=== PATIENT | female | born 1945 | race Caucasian/White ===

== ENCOUNTER 2022-01-31 09:48 | Day surgery (SDC) | payer OTHER, MEDICARE ==
[2022-01-31] MEDS ORDERED: Zoledronic Acid/Mannitol/Water 5 MG/100 ML INFUS.BOT IV ONE (10:00)
[2022-01-31 10:17] VITALS: BP 129/52; TEMP 98.1; O2SAT 98; BMI 24.1
== END 2022-01-31 10:28 | disposition home or self-care (01) ==
LOC: DS 09:48
PROVIDERS: ATTEND Internal Medicine
DX: M81.0 Age-related osteoporosis without current pathological fracture (principal); R13.10 Dysphagia, unspecified
CPT/HCPCS: 96365; J3489

== ENCOUNTER 2024-02-19 07:25 | Day surgery (SDC) | payer OTHER, MEDICARE ==
[2024-02-19] MEDS ORDERED: Zoledronic Acid/Mannitol/Water 5 MG/100 ML INFUS.BOT IV SCH (08:00)
[2024-02-19 08:22] VITALS: BP 124/63; TEMP 97; O2SAT 98; BMI 24.5
== END 2024-02-19 08:35 | disposition home or self-care (01) ==
LOC: DS 07:25
PROVIDERS: ATTEND Family Medicine
DX: M81.0 Age-related osteoporosis without current pathological fracture (principal); R13.10 Dysphagia, unspecified
CPT/HCPCS: 96365; J3489

== ENCOUNTER 2024-03-24 10:21 | Day surgery (SDC) | payer OTHER, MEDICARE ==
[2024-03-23 11:33] LABS: Absolute Eosinophils 0.1 K/uL (0-0.5); Absolute Lymphocytes (CBC) 2.7 K/uL (0.7-4.9); Absolute Neutrophil 4.8 K/uL (1.8-8.0); Basophils % 0.4 % (0-1.3); Eosinophils % 1.2 % (0-4.4); Hematocrit 36.1 % (36.0-45.0); Hemoglobin 12.1 g/dL (12.0-15.0); Lymphocytes % 30.9 % (15.3-44.8); MCH 30.1 pg (27.0-35.0); MCHC 33.5 g/dL (32.0-36.0); MCV 89.7 fL (80-100); MPV 9.3 fL (7.6-11.3); Monocytes % 11.8 % (3.3-12.3); Neutrophils % 55.7 % (41.7-73.7); Platelets 286 thou/uL (152-406); RBC Red Blood Cell Count 4.03 M/uL (3.86-4.86); Red Cell Distribution Width 13.6 % (12.1-15.2)
[2024-03-23 11:56] LABS: Anion Gap 8.1 mEq/L (5.0-15.0); Potassium 4.1 mEq/L (3.5-5.1)
[2024-03-24] MEDS: Ringers Lactate 1,000 ML IV ONE (11:10)
[2024-03-24] MEDS ORDERED: LIDOCAINE 1% MPF 30 ML VIAL ONE (11:55)
[2024-03-24] MEDS ORDERED: GLYCOPYRROLATE 0.2 MG/ML SYR ONE (11:55)
[2024-03-24] MEDS ORDERED: propofoL 200 MG/20 ML VIAL IV ONE (11:55)
[2024-03-24 14:02] VITALS: BP 135/77; TEMP 97.8
--- NOTE | 2024-03-24 14:51 | EKG ---
Test Date: 2024-03-23 Test Time: 10:56:25 Office Engineer: ANNAMARIA MEASUREMENT RESULTS: Intervals: Rate: 61 NJ: 152 QRSD: 78 QT: 410 QTc: 412 [place]: P: 56 NJ: 152 QRS: -15 T: 24 INTERPRETIVE STATEMENTS: Normal sinus rhythm Possible Left atrial enlargement Low voltage QRS Cannot rule out Anterior infarct, age undetermined Abnormal ECG Compared to ECG 03/22/2016 03:18:18 Low QRS voltage now present Myocardial infarct finding now present Electronically Signed On 03-24-24 14:46:44 CDT by Zuhair Layne
[2024-03-24 14:54] VITALS: O2SAT 96
== END 2024-03-24 13:43 | disposition home or self-care (01) ==
LOC: OR 10:21
PROVIDERS: ATTEND Surgery
PROC: 0DBM8ZX Excision of Descending Colon, Via Natural or Artificial Opening Endoscopic, Diagnostic (ICD-10-PCS; 2024-03-24)
PROC: 0DBP8ZX Excision of Rectum, Via Natural or Artificial Opening Endoscopic, Diagnostic (ICD-10-PCS; 2024-03-24)
PROC: 0DBK8ZX Excision of Ascending Colon, Via Natural or Artificial Opening Endoscopic, Diagnostic (ICD-10-PCS; principal; 2024-03-24 11:58)
DX: Z12.11 Encounter for screening for malignant neoplasm of colon (principal); K57.30 Diverticulosis of large intestine without perforation or abscess without bleeding; K64.8 Other hemorrhoids; K63.89 Other specified diseases of intestine; K63.5 Polyp of colon; D12.4 Benign neoplasm of descending colon
CPT/HCPCS: 45385; 45380; 93005; 85025; 80048; 36415; J2704; J2001; J7120; 88305; J2003

== ENCOUNTER 2024-09-12 15:22 | Inpatient (IN) | payer OTHER, MEDICARE ==
[2024-09-12 16:48] LABS: Absolute Eosinophils 0.1 K/uL (0-0.5); Absolute Lymphocytes (CBC) 2.3 K/uL (0.7-4.9); Absolute Monocytes 1.1 K/uL (0.1-1.3); Absolute Neutrophil 5.2 K/uL (1.8-8.0); Basophils % 0.4 % (0-1.3); Eosinophils % 1.6 % (0-4.4); Hematocrit 34.1 % (36.0-45.0); Hemoglobin 11.5 g/dL (12.0-15.0); Lymphocytes % 26.7 % (15.3-44.8); MCH 29.9 pg (27.0-35.0); MCHC 33.6 g/dL (32.0-36.0); MCV 89.2 fL (80-100); MPV 7.7 fL (7.6-11.3); Monocytes % 12.3 % (3.3-12.3); Nucleated Red Blood Cells % 0.1 % (0-0); Platelets 503 thou/uL (152-406); RBC Red Blood Cell Count 3.83 M/uL (3.86-4.86); Red Cell Distribution Width 13.5 % (12.1-15.2)
[2024-09-12 16:55] LABS: PT Prothrombin Time 13.3 SECONDS (10-13.0); Protime INR 1.18
[2024-09-12 17:05] LABS: Influenza A Ag Negative; Influenza B Ag Negative; SARS-CoV-2 Antigen Rapid Res Negative (Negative)
[2024-09-12 17:07] LABS: ALT/SGPT 18 U/L (13-56); AST/SGOT 11 U/L (15-37); Albumin 2.9 g/dL (3.4-5.0); Albumin/Globulin Ratio 0.7 (1.1-1.8); Alkaline Phosphatase 105 U/L (45-117); Anion Gap 9.2 mEq/L (5.0-15.0); BUN Blood Urea Nitrogen 8 mg/dL (7-18); Bicarbonate 26 mEq/L (21-32); Bilirubin Direct < 0.2 mg/dL (0-0.2); Bilirubin Indirect, Calculated 0.1 mg/dL (0.2-0.8); Bilirubin Total 0.3 mg/dL (0.2-1.0); Globulin 4.1 g/dL (2.3-3.5); Glomerular Filtration Rate 88 ml/min (=/>90); Glucose Level 92 mg/dL (74-106); Lipase 35 U/L (13-75); Magnesium 2.2 mg/dL (1.6-2.4); NT PRO-BNP 112 pg/mL (<450); Potassium 4.2 mEq/L (3.5-5.1); Sodium Level 134 mEq/L (136-145)
[2024-09-12] MEDS ORDERED: CEFTRIAXONE 1000 MG/VIAL ONE (17:30)
--- NOTE | 2024-09-12 17:48 | RAD REPORT ---
EXAMINATION: CT HEAD WITHOUT CONTRAST CT CERVICAL SPINE WITHOUT CONTRAST CLINICAL INDICATION: Head and neck pain. Cervical spine stenosis. Cervical spine surgery. TECHNIQUE: Axial CT images from the skull base to the vertex without intravenous contrast. Axial CT images through the cervical spine were obtained without intravenous contrast. Sagittal and coronal reformatt ed images were created from the data set. Coronal and sagittal reformatted images were created from the data set. One or more of the following dose reduction techniques were used: Automated exposure co ntrol, adjustment of the mA and/or kV according to patient size, and/or iterative reconstruction. Unless otherwise specified, incidental findings do not require dedicated imaging follow-up. [id number]. Comparison: none FINDINGS: An intracranial bleed is not seen. Ventricles are normal in caliber. No significant hypodensity within the brain No extra-axial fluid collection. No fluid within the sinuses/mastoids Mildly displaced fractures involve the posterior right and left lamina of C7. Laminectomies involve C4-C6 with placement of screws. No obvious is significant acute spinal canal abnormality visualized. Mild posterior subluxation C3 on C4. Spondylosis C3-4 results in marked right foraminal stenosis. IMPRESSION: No acute intracranial abnormality noted Mildly displaced fractures posterior right and left lamina of C7 Post surgical changes C4-C6. If clinically indicated further evaluation with MRI may be helpful to assess the spinal canal.
--- NOTE | 2024-09-12 17:56 | RAD REPORT ---
EXAM: CT CHEST, ABDOMEN AND PELVIS WITHOUT CONTRAST CLINICAL INDICATION: Chest and abdominal pain TECHNIQUE: CT chest, abdomen and pelvis was performed, without IV contrast, as per department protoco l. Axial, sagittal and coronal reconstructions were obtained. One or more of the following dose reduction techniques were used: Automated exposure control, adjustment of the mA and/or kV according to the patient size, and/or iterative reconstruction. Unless otherwise specified, incidental findings do not require dedicated imaging follow-up. The lack of IV and oral contrast limits evaluation of the mediastinum, hussain, vessels, organs and zachary l. COMPARISON: 2020 CT chest and 2023 CT abdomen FINDINGS: Moderate bilateral predominantly reticular nodular opacities within the lower lobes bilaterally. Mild groundglass opacities within the right lung. Calcified granulomas within the lungs. No mediastin al or hilar lymphadenopathy seen. No pleural effusion. No pericardial effusion. Cirrhotic liver. Tiny hepatic cyst. Spleen, pancreas, adrenals and kidneys grossly normal. Atherosclerosis. No adnexal mass. Wall of the proximal duodenum appears mildly thickened. No evidence of diverticulitis . IMPRESSION: Moderate reticular nodular opacities within the lower lobes bilaterally could represent atypical infe ction, aspiration or pneumonitis. Wall of the proximal duodenum appears mildly thickened which could indicate inflammation.
--- NOTE | 2024-09-12 18:14 | RAD REPORT ---
Procedure: Chest Single View HISTORY: Cough COMPARISON: 2019 FINDINGS: Moderate reticular nodular opacities within the lung bases. Calcified granuloma left lung. Upper lobe s appear clear. No significant pleural effusion noted. The heart is normal size. IMPRESSION: Moderate reticular nodular opacities within the lung bases may indicate atypical infection or pneumon itis
--- NOTE | 2024-09-12 19:03 | EDPHYS ---
Physician Documentation [facility] Name: Rimma Samson Age: 78 yrs Sex: Female : 1945 Arrival Date: 09/12/2024 Time: 15:22 Bed 14 Private MD: ED Physician Charles Coreas HPI: 09/12 18:56 This 78 yrs old Female presents to ER via EMS with complaints of General radha Weakness. 18:56 The patient presents with abdominal pain in the epigastric area. Onset: The radha symptoms/episode began/occurred 3 day(s) ago. The patient presents to the emergency department with nausea, vomiting, abdominal pain, of the epigastric area. Onset: The symptoms/episode began/occurred 3 day(s) ago. Possible causes: unknown. The symptoms are aggravated by food , The symptoms are alleviated by nothing. WEAK , NOT EATING OR DRINKING 2-3 DAYS. Associated signs and symptoms: Pertinent positives: nausea, vomiting. Associated signs and symptoms: Pertinent positives: nausea. Historical: - Allergies: 16:00 No Known Allergies; bp - PMHx: 16:00 COPD; Hypertension; bp - Immunization history:: Adult Immunizations unknown. - Infectious Disease History:: Denies. - Social history:: Smoking status: Patient denies any tobacco usage or history of. - Family history:: not pertinent. ROS: 18:56 Constitutional: Negative for fever, chills, and weight loss, Eyes: Negative for injury, radha pain, redness, and discharge, ENT: Negative for injury, pain, and discharge, Neck: Negative for injury, pain, and swelling, Cardiovascular: Negative for chest pain, palpitations, and edema, Respiratory: Negative for shortness of breath, cough, wheezing, and pleuritic chest pain, Back: Negative for injury and pain, : Negative for injury, bleeding, discharge, and swelling, MS/Extremity: Negative for injury and deformity, Skin: Negative for injury, rash, and discoloration, Psych: Negative for depression, anxiety, suicide ideation, homicidal ideation, and hallucinations, Allergy/Immunology: Negative for hives, rash, and allergies, Endocrine: Negative for neck swelling, polydipsia, polyuria, polyphagia, and marked weight changes, Hematologic/Lymphatic: Negative for swollen nodes, abnormal bleeding, and unusual bruising, 18:56 Abdomen/GI: Positive for abdominal pain, of the epigastric area, 18:56 Neuro: Positive for weakness, Exam: 18:56 Constitutional: This is a well developed, well nourished patient who is awake, alert, radha and in no acute distress. Head/Face: Normocephalic, atraumatic. Eyes: Pupils equal round and reactive to light, extra-ocular motions intact. Lids and lashes normal. Conjunctiva and sclera are non-icteric and not injected. Cornea within normal limits. Periorbital areas with no swelling, redness, or edema. ENT: Nares patent. No nasal discharge, no septal abnormalities noted. Tympanic membranes are normal and external auditory canals are clear. Oropharynx with no redness, swelling, or masses, exudates, or evidence of obstruction, uvula midline. Mucous membranes moist. Neck: Trachea midline, no thyromegaly or masses palpated, and no cervical lymphadenopathy. Supple, full range of motion without nuchal rigidity, or vertebral point tenderness. No Meningismus. Chest/axilla: Normal chest wall appearance and motion. Nontender with no deformity. No lesions are appreciated. Cardiovascular: Regular rate and rhythm with a normal S1 and S2. No gallops, murmurs, or rubs. Normal PMI, no JVD. No pulse deficits. Respiratory: Lungs have equal breath sounds bilaterally, clear to auscultation and percussion. No rales, rhonchi or wheezes noted. No increased work of breathing, no retractions or nasal flaring. Back: No spinal tenderness. No costovertebral tenderness. Full range of motion. Female : Normal external genitalia. Skin: Warm, dry with normal turgor. Normal color with no rashes, no lesions, and no evidence of cellulitis. MS/ Extremity: Pulses equal, no cyanosis. Neurovascular intact. Full, normal range of motion., bilateral aka Psych: Awake, alert, with orientation to person, place and time. Behavior, mood, and affect are within normal limits. 18:56 ECG was reviewed by the Attending Physician. 18:56 Abdomen/GI: Inspection: abdomen appears normal, Bowel sounds: active, Palpation: mild abdominal tenderness, in the epigastric area, Liver: no appreciated palpable abnormalities, Hernia: not appreciated, Vital Signs: 15:37 BP 118 / 60; Pulse 75; Resp 18; Pulse Ox 100% ; Weight 48.99 kg; Height 5 ft. 0 in. ; kj2 17:00 BP 110 / 57; Pulse 83; Resp 16; Pulse Ox 96% ; bp 19:00 BP 127 / 70; Pulse 85; Resp 18; Pulse Ox 98% ; cp4 20:00 BP 126 / 58; Pulse 88; Resp 18; Pulse Ox 99% ; cp4 15:37 Body Mass Index 21.09 (48.99 kg, 152.4 cm) kj2 MDM: 15:44 Medical Screening Exam initiated [facility] 09/12 15:46 Order name: Basic Metabolic Panel; Complete Time: 18:36 [facility] 09/12 15:46 Order name: CBC with Diff; Complete Time: 18:36 [facility] 09/12 15:46 Order name: LFT's; Complete Time: 18:36 [facility] 09/12 15:46 Order name: Magnesium; Complete Time: 18:36 [facility] 09/12 15:46 Order name: NT PRO-BNP; Complete Time: 18:36 [facility] 09/12 15:46 Order name: PT-INR; Complete Time: 18:36 [facility] 09/12 15:46 Order name: Troponin HS; Complete Time: 18:36 [facility] 09/12 15:46 Order name: Lipase; Complete Time: 18:36 [facility] 09/12 15:46 Order name: Urinalysis w/ reflexes [facility] 09/12 15:46 Order name: COVID-19 Ag + Flu A+B Ag; Complete Time: 18:36 [facility] 09/12 15:46 Order name: Blood Culture Adult (2) 09/12 15:46 Order name: Lactate w/ 2H reflex if indic.; Complete Time: 18:36 [facility] 09/12 19:14 Order name: Basic Metabolic Panel EDMS 09/12 19:14 Order name: Basic Metabolic Panel EDMS 09/12 19:14 Order name: CBC with Automated Diff EDMS 09/12 19:14 Order name: CBC with Automated Diff EDMS 09/12 19:14 Order name: Lipase EDMS 09/12 19:14 Order name: Lipase EDMS 09/12 19:14 Order name: Liver (Hepatic) Function EDMS 09/12 19:14 Order name: Liver (Hepatic) Function EDMS 09/12 15:46 Order name: XRAY Chest (1 view); Complete Time: 18:36 [facility] 09/12 15:59 Order name: Chest Abd Pelvis Wo Con; Complete Time: 18:36 EDMS 09/12 16:02 Order name: Head C Spine Mpr Wo Con; Complete Time: 18:36 EDMS 09/12 15:46 Order name: EKG; Complete Time: 15:47 [facility] 09/12 15:46 Order name: Cardiac monitoring; Complete Time: 16:12 [facility] 09/12 15:46 Order name: EKG - Nurse/Tech; Complete Time: 17:10 [facility] 09/12 15:46 Order name: IV Saline Lock; Complete Time: 17:10 [facility] 09/12 15:46 Order name: Labs collected and sent; Complete Time: 17:10 [facility] 09/12 15:46 Order name: O2 Per Protocol; Complete Time: 16:12 [facility] 09/12 15:46 Order name: O2 Sat Monitoring; Complete Time: 16:12 [facility] EC:56 Rate is 52 beats/min. Rhythm is regular. QRS Edgar is Normal. QRS interval is normal. QT radha interval is normal. No Q waves. T waves are Normal. No ST changes noted. Clinical impression: Normal ECG, NSR w/ Non-specific ST/T Changes, and No evidence of ischemia. Interpreted by me. Reviewed by me. Administered Medications: 17:47 Drug: NS 0.9% IV (30 ml/kg) 30 ml/kg IV at bolus once; Sepsis Protocol; to be given as bp a bolus over 90 minutes Route: IV; Rate: bolus; Site: left forearm; 19:53 Follow up: IV Status: Completed infusion cp4 17:47 Drug: Rocephin IV 1 grams IV at per protocol once; Given slow IV push per pharmacy bp instructions Route: IV; Rate: per protocol; Site: right forearm; 19:53 Follow up: IV Status: Completed infusion cp4 19:52 Drug: Pantoprazole IVP 40 mg IVP once Route: IVP; Site: right antecubital; cp4 20:13 Follow up: Response: No adverse reaction cp4 19:53 Drug: levofloxacin IVPB 500 mg 100 ml IVPB once over 60 mins Volume: 100 ml; Route: cp4 IVPB; Infused Over: 60 mins; Site: right antecubital; 21:04 Follow up: Response: No adverse reaction cp4 Disposition Summary: 09/12/24 19:03 Hospitalization Ordered Notes: Hospitalization Status: Inpatient Admission [facility] Provider: Joe Mckeon cha Location: Telemetry/MedSurg (Inpatient) radha Condition: Fair radha Problem: new radha Symptoms: have improved radha Bed/Room Type: Standard [facility] Room Assignment: 207(09/12/24 19:50) vk Diagnosis - Anorexia radha - Weakness radha - Pneumonia due to other specified bacteria - BILATERAL LOWER LOBE RETICULAR NODULAR radha PNA - Epigastric abdominal tenderness - MILD DUODENITIS radha Forms: - Medication Reconciliation Form radha - SBAR form radha - Leadership Thank You Letter radha Signatures: Dispatcher [employer] EDMS Charles Coreas MD MD cha Peltier, Brian, RN RN Vandana Barr cp4 Erica Yañez Krystal, SHADI RN kj2 Corrections: (The following items were deleted from the chart) 15:59 15:47 Head C Spine Cap Wo Con+CT.RAD.BRZ ordered. EDNY EDMS 19:50 19:03 radha vk
--- NOTE | 2024-09-12 19:03 | ER ---
Nurse's Notes [facility] Name: Rimma Samson Age: 78 yrs Sex: Female : 1945 Arrival Date: 09/12/2024 Time: 15:22 Bed 14 Private MD: Diagnosis: Anorexia;Weakness;Pneumonia due to other specified bacteria-BILATERAL LOWER LOBE RETICULAR NODULAR PNA;Epigastric abdominal tenderness-MILD DUODENITIS Presentation: 09/12 15:34 Chief complaint: EMS states: generalized weakness, malaise. Coronavirus screen: Client kj2 denies travel out of the [place] in the last 14 days. Ebola Screen: No symptoms or risks identified at this time. Risk Assessment: Do you want to hurt yourself or someone else? Patient reports no desire to harm self or others. Onset of symptoms was September 12, 2024. 15:34 Method Of Arrival: EMS: [email or web address] kj2 15:34 Acuity: EBONI 3 kj2 21:03 Initial Sepsis Screen: Does the patient meet any 2 criteria? No. Patient's initial cp4 sepsis screen is negative. Does the patient have a suspected source of infection? No. Patient's initial sepsis screen is negative. Triage Assessment: 15:35 General: Appears in no apparent distress. Behavior is calm, cooperative. Pain: Denies kj2 pain. Neuro: Level of Consciousness is awake, alert, obeys commands, Oriented to person, place, time, situation. Cardiovascular: Patient's skin is warm and dry. Respiratory: Airway is patent Respiratory effort is even, unlabored. GI: No signs and/or symptoms were reported involving the gastrointestinal system. : No signs and/or symptoms were reported regarding the genitourinary system. Historical: - Allergies: 16:00 No Known Allergies; bp - PMHx: 16:00 COPD; Hypertension; bp - Immunization history:: Adult Immunizations unknown. - Infectious Disease History:: Denies. - Social history:: Smoking status: Patient denies any tobacco usage or history of. - Family history:: not pertinent. Screenin:01 [facility] ED Fall Risk Assessment (Adult) History of falling in the last 3 months, cp4 including since admission No falls in past 3 months (0 pts) Confusion or Disorientation No (0 pts) Intoxicated or Sedated No (0 pts) Impaired Gait No (0 pts) Mobility Assist Device Used Yes (1 pt) Altered Elimination No (0 pt) Score/Fall Risk Level 0 - 2 = Low Risk Oriented to surroundings, Maintained a safe environment, Assessed \T\ reinforced patient's understanding of fall precautions, Hourly rounding (assess needs \T\ fall precautionary measures) done. Abuse screen: Denies threats or abuse. Denies injuries from another. Nutritional screening: No deficits noted. Tuberculosis screening: No symptoms or risk factors identified. Assessment: 15:36 General: see triage assessment. kj2 20:12 Reassessment: Patient appears in no apparent distress at this time. No changes from cp4 previously documented assessment. Patient and/or family updated on plan of care and expected duration. Pain level reassessed. Patient is alert, oriented x 3, equal unlabored respirations, skin warm/dry/pink. Vital Signs: 15:37 BP 118 / 60; Pulse 75; Resp 18; Pulse Ox 100% ; Weight 48.99 kg; Height 5 ft. 0 in. ; kj2 17:00 BP 110 / 57; Pulse 83; Resp 16; Pulse Ox 96% ; bp 19:00 BP 127 / 70; Pulse 85; Resp 18; Pulse Ox 98% ; cp4 20:00 BP 126 / 58; Pulse 88; Resp 18; Pulse Ox 99% ; cp4 15:37 Body Mass Index 21.09 (48.99 kg, 152.4 cm) kj2 ED Course: 15:33 Patient arrived in ED. kj2 15:35 Triage completed. kj2 15:43 Km Sanders, SHADI is Primary Nurse. bp 15:44 Charles Coreas MD is Attending Physician. radha 17:10 EKG done, by ED staff, reviewed by Charles Coreas MD. am7 17:25 Chest Abd Pelvis Wo Con In Process Unspecified. EDMS 17:25 Head C Spine Mpr Wo Con In Process Unspecified. EDMS 17:56 XRAY Chest (1 view) In Process Unspecified. EDMS 19:01 Joe Mckeon MD is Hospitalizing Provider. radha 21:01 No provider procedures requiring assistance completed. Patient admitted, IV remains in cp4 place. 21:01 Bed in low position. Call light in reach. Side rails up X 1. Provided Education on: cp4 admission. 21:03 Arm band placed on right wrist. Patient placed in waiting room. cp4 Administered Medications: 17:47 Drug: NS 0.9% IV (30 ml/kg) 30 ml/kg IV at bolus once; Sepsis Protocol; to be given as bp a bolus over 90 minutes Route: IV; Rate: bolus; Site: left forearm; 19:53 Follow up: IV Status: Completed infusion cp4 17:47 Drug: Rocephin IV 1 grams IV at per protocol once; Given slow IV push per pharmacy bp instructions Route: IV; Rate: per protocol; Site: right forearm; 19:53 Follow up: IV Status: Completed infusion cp4 19:52 Drug: Pantoprazole IVP 40 mg IVP once Route: IVP; Site: right antecubital; cp4 20:13 Follow up: Response: No adverse reaction cp4 19:53 Drug: levofloxacin IVPB 500 mg 100 ml IVPB once over 60 mins Volume: 100 ml; Route: cp4 IVPB; Infused Over: 60 mins; Site: right antecubital; 21:04 Follow up: Response: No adverse reaction cp4 Medication: 21:01 VIS not applicable for this client. cp4 Outcome: 19:03 Decision to Hospitalize by Provider. radha 21:01 Admitted to Med/surg accompanied by tech, via stretcher, with chart, cp4 21:01 Condition: stable 21:01 Instructed on the need for admit, 21:03 Patient left the ED. cp4 Signatures: Dispatcher [employer] EDMS Charles Coreas MD MD cha Peltier, Brian, RN RN Vandana Barr cp4 Bárbara Cuevas RN RN [facility]
[2024-09-12] MEDS ORDERED: ONDANSETRON 4 MG/2 ML VIAL IV PRN (19:09)
[2024-09-12] MEDS ORDERED: ACETAMINOPHEN 325 MG TABLET PO PRN (19:09)
[2024-09-12] MEDS ORDERED: SODIUM CHLORIDE 0.9% 10ML INJ IV PRN (19:10)
[2024-09-12] MEDS ORDERED: FENTANYL CITR 100 MCG/2 ML IV PRN (19:11)
[2024-09-12] MEDS ORDERED: THIAMINE 200 MG/2 ML INJ ONE (19:41)
[2024-09-12] MEDS ORDERED: PANTOPRAZOLE 40 MG INJ ONE (19:41)
[2024-09-12] MEDS ORDERED: FOLIC ACID 5 MG/ML VIAL ONE (19:41)
[2024-09-12] MEDS ORDERED: MULTIVITAMINS 10 ML VIAL (INJ) IV ONE (19:41)
[2024-09-12] MEDS ORDERED: NA CHLORIDE 0.9% 0 ML ONE (19:42)
[2024-09-12] MEDS ORDERED: Levofloxacin500mg IV 500 MG/100 ML BAG IV ONE (19:42)
[2024-09-12 21:12] VITALS: O2SAT 99
[2024-09-12] MEDS: D5 0.45 NS 1,000 ML IV SCH (22:23)
[2024-09-12] MEDS: Levofloxacin 250mg IV 250 MG/50 ML BAG IV SCH (23:00)
[2024-09-13 00:33] VITALS: BMI 21.1
[2024-09-13 06:02] LABS: Absolute Eosinophils 0.1 K/uL (0-0.5); Absolute Lymphocytes (CBC) 1.2 K/uL (0.7-4.9); Absolute Monocytes 0.8 K/uL (0.1-1.3); Basophils % 0.7 % (0-1.3); Eosinophils % 1.5 % (0-4.4); Hematocrit 29.7 % (36.0-45.0); Hemoglobin 10.1 g/dL (12.0-15.0); Lymphocytes % 20.1 % (15.3-44.8); MCV 88.4 fL (80-100); MPV 7.4 fL (7.6-11.3); Monocytes % 12.7 % (3.3-12.3); Platelets 450 thou/uL (152-406); RBC Red Blood Cell Count 3.35 M/uL (3.86-4.86); Red Cell Distribution Width 13.5 % (12.1-15.2)
[2024-09-13 06:23] LABS: ALT/SGPT 16 U/L (13-56); Albumin 2.3 g/dL (3.4-5.0); Albumin/Globulin Ratio 0.6 (1.1-1.8); Alkaline Phosphatase 92 U/L (45-117); Anion Gap 6.8 mEq/L (5.0-15.0); BUN Blood Urea Nitrogen 5 mg/dL (7-18); Bicarbonate 26 mEq/L (21-32); Bilirubin Total 0.3 mg/dL (0.2-1.0); Globulin 3.8 g/dL (2.3-3.5); Glomerular Filtration Rate 91 ml/min (=/>90); Glucose Level 128 mg/dL (74-106); Lipase 31 U/L (13-75); Potassium 3.8 mEq/L (3.5-5.1); Protein, Total 6.1 g/dL (6.4-8.2); Sodium Level 138 mEq/L (136-145)
[2024-09-13 06:24] LABS: AST/SGOT < 10 U/L (15-37); Bilirubin Direct < 0.2 mg/dL (0-0.2); Bilirubin Indirect, Calculated 0.1 mg/dL (0.2-0.8)
[2024-09-13] MEDS: PANTOPRAZOLE 40 MG INJ IVP SCH (07:48)
[2024-09-13] MEDS: D5 0.45 NS 1,000 ML IV SCH ×2 (13:06→21:26)
--- NOTE | 2024-09-13 13:13 | P.HP ---
Patient History Date of Service: 09/13/24 Reason for admission: WEAKNESS History of Present Illness: LAUREN HAD A NECK SURGERY FOR C SPINE ABOUT TWO WEEKS AGO. AFTER SURGERY SHE CODED AND NOT ABLE TO EXPLAIN WHAT EXACTLY HAPPENED. SHE TOOK A WEEK TO RECOVER AT [facility]. SHE WAS SENT HOME. DOING GOOD FOR 3 DAYS BUT THEN GOT WEAK AGAIN. SHE HAD NO COUGH, NO FEVER, NO DYPSNEA, NO ABDOMEN PAIN. TODAY SHE IS A LOT BETTER AFTER BEING ON LEVAQUIN AND IV. SHE SAYS THAT HER PULMONARY MD ALWAYS ASKS IF SH HAD FELT WELL LUNGS SHOWED ILLITERATES. Allergies No Known Allergies Allergy (Verified 03/23/24 10:48) Home medications list reviewed: Yes Home Medications: Metoprolol Succinate [Toprol Xl] 100 mg PO DAILY 02/03/23 Biotin 10,000 mcg PO DAILY 03/23/24 Famotidine [Pepcid] 20 mg PO BID 03/23/24 Fluticasone/Umeclidin/Vilanter [Trelegy Ellipta 100-62.5-25] 1 puff IH DAILY 03/23/24 Gabapentin [Neurontin] 100 mg PO BID 03/23/24 Zoledronic Acid/Mannitol/Water [Reclast 5 MG/100 ML IVPB (PREMIX)] 5 mg IV SEECOM 03/23/24 - Past Medical/Surgical History Has patient received pneumonia vaccine in the past: Yes -: prediabetes -: copd -: tachycardia -: lung cancer 2020 -: upper R lobe of lung removed 2020 -: laminoplasty 2024 -: elbow- rendonitis sundar -: ortho- R foot trauma -: plate/screws R/L femurs/hips - Social History Smoking Status: Former smoker Alcohol use: No CD- Drugs: No Caffeine use: No Place of Residence: Home Review of Systems 10-point ROS is otherwise unremarkable General: Weakness Respiratory: As per HPI Physical Examination - Vital Signs Temperature: 97.7 F Blood Pressure: 138/70 Pulse: 105 Respirations: 16 Pulse Ox (%): 93 - Physical Exam General: Oriented x3, Mild distress HEENT: Atraumatic, PERRLA, Mucous membr. moist/pink, EOMI, Sclerae nonicteric Neck: Supple, 2+ carotid pulse no bruit, No LAD, Without JVD or thyroid abnormality Respiratory: Clear to auscultation bilaterally, Normal air movement Cardiovascular: Regular rate/rhythm, Normal S1 S2 Gastrointestinal: Normal bowel sounds, No tenderness Musculoskeletal: No tenderness Integumentary: No rashes Neurological: Normal gait, Normal speech, Normal strength at 5/5 x4 extr, Normal tone, Normal affect Lymphatics: No axilla or inguinal lymphadenopathy - Studies Laboratory Data (last 24 hrs) 09/12/24 09/12/24 09/12/24 16:30 16:30 16:30 WBC 8.70 Hgb 11.5 L Hct 34.1 L Plt Count 503 H PT 13.3 H INR 1.18 Sodium 134 L Potassium 4.2 BUN 8 Creatinine 0.71 Glucose 92 Magnesium 2.2 Total Bilirubin 0.3 AST 11 L ALT 18 Alkaline Phosphatase 105 Lipase 35 Assessment and Plan - Problems (Diagnosis) (1) General weakness Current Visit: Yes Status: Acute Plan: NOT CLEAR REASON WITH THIS. POST OP RECOVERY. DO CT ANGIO CHEST SHE IS AT HIGH RISK OF PE. CT CHEST ABDOMEN AND PELVIS DONE BY ER BUT NOT WITH CONTRAST. 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 PROGNOSIS IS GUARDED. - Advance Directives Does patient have a Living Will: No Does patient have a Durable POA for Healthcare: No
--- NOTE | 2024-09-13 13:56 | RAD REPORT ---
EXAMINATION: CTA CHEST PE CLINICAL INDICATION: Female, 78 years old. HYPOXIA TECHNIQUE: This examination was performed according to an angiographic protocol with 3D post-processi ng. This involves 3D reconstructions, MIPs, volume rendered images and/or shaded surface rendering. One or more of the following dose reduction techniques were used: Automated exposure control, adjustm ent of the mA and/or kV according to patient size, and/or iterative reconstruction. Unless otherwise specified, incidental findings do not require dedicated imaging follow-up. [id number]. COMPARISON: 09/12/2024 FINDINGS: LOWER NECK: Subcentimeter thyroid nodules which do not require additional evaluation. MEDIASTINUM AND LYMPH NODES: Bilateral hilar and mediastinal lymphadenopathy. For example, a right hi lar lymph node measures 12 mm in short axis. A left hilar lymph node measures 10 mm. THORACIC AORTA: No thoracic aortic aneurysm. PULMONARY ARTERIES: Caliber is within normal limits. No pulmonary emboli identified. HEART: Normal heart size. Mild coronary artery calcifications.No significant pericardial effusion. LUNGS AND AIRWAYS: Worsening consolidation present in the lower lungs bilaterally as well as worsened widespread nodularity and marked nodularity.No dominant or overtly suspicious pulmonary nodule identified. PLEURA: No pleural effusions. No pneumothorax. OSSEOUS STRUCTURES AND CHEST WALL: Multilevel degenerative changes. No acute fracture. UPPER ABDOMEN: No acute abnormalities. IMPRESSION: Negative for pulmonary embolism. Worsening basilar consolidation and increasing nodular and micronodu lar opacities throughout both lungs consistent with either worsening pneumonia and/or aspiration..
[2024-09-13] MEDS: Meropenem 1,000 MG in NA CHLORIDE 0.9% 100 ML IV SCH (16:34)
[2024-09-13] MEDS: METOPROLOL XL 100 MG TAB PO ONE (16:56)
[2024-09-13] MEDS: GABAPENTIN 100 MG CAP PO SCH (20:14)
[2024-09-13] MEDS: ENSURE ENLIVE 237 ML CAN PO SCH (20:15)
[2024-09-13 22:27] LABS: Sqamous Epithelial None Seen /HPF (None Seen); Urine Bacteria None Seen /HPF (<20); Urine Bilirubin NEGATIVE (Negative); Urine Blood Negative (Negative); Urine Clarity Clear (Clear); Urine Color Light-Yellow (Yellow); Urine Culture Reflex Order NOT NEEDED; Urine Glucose NEGATIVE (Negative); Urine Ketones TRACE (Negative); Urine Microscopic Reflex YN ORDER UMIC; Urine Nitrite NEGATIVE (Negative); Urine Protein TRACE (Negative); Urine RBC <5 /HPF (None Seen); Urine Urobilinogen 1+ (Normal); Urine WBC <5 /HPF (<5)
[2024-09-13 22:31] LABS: Specific Gravity > 1.030 (1.005-1.030)
[2024-09-14 04:53] LABS: Absolute Eosinophils 0.1 K/uL (0-0.5); Absolute Lymphocytes (CBC) 2.2 K/uL (0.7-4.9); Absolute Monocytes 1.3 K/uL (0.1-1.3); Absolute Neutrophil 6.9 K/uL (1.8-8.0); Basophils % 0.4 % (0-1.3); Eosinophils % 0.5 % (0-4.4); Hematocrit 30.2 % (36.0-45.0); Hemoglobin 10.1 g/dL (12.0-15.0); Lymphocytes % 21.1 % (15.3-44.8); MCH 29.5 pg (27.0-35.0); MCHC 33.3 g/dL (32.0-36.0); MCV 88.5 fL (80-100); MPV 7.7 fL (7.6-11.3); Monocytes % 12.2 % (3.3-12.3); Neutrophils % 65.8 % (41.7-73.7); Platelets 417 thou/uL (152-406); RBC Red Blood Cell Count 3.41 M/uL (3.86-4.86); Red Cell Distribution Width 13.6 % (12.1-15.2)
[2024-09-14 05:11] LABS: AST/SGOT 12 U/L (15-37); Albumin 2.3 g/dL (3.4-5.0); Albumin/Globulin Ratio 0.6 (1.1-1.8); Alkaline Phosphatase 83 U/L (45-117); Anion Gap 8.4 mEq/L (5.0-15.0); BUN Blood Urea Nitrogen 3 mg/dL (7-18); Bicarbonate 24 mEq/L (21-32); Bilirubin Total 0.3 mg/dL (0.2-1.0); Globulin 3.7 g/dL (2.3-3.5); Glomerular Filtration Rate 91 ml/min (=/>90); Glucose Level 120 mg/dL (74-106); Potassium 3.4 mEq/L (3.5-5.1); Sodium Level 136 mEq/L (136-145)
[2024-09-14 05:27] LABS: ALT/SGPT < 14 U/L (13-56); Bilirubin Direct < 0.2 mg/dL (0-0.2); Bilirubin Indirect, Calculated 0.1 mg/dL (0.2-0.8)
[2024-09-14] MEDS: POTASSIUM CL SA 10 MEQ TAB PO ONE (08:37)
[2024-09-14] MEDS: METOPROLOL XL 25 MG TAB PO SCH (08:37)
[2024-09-14] MEDS: Meropenem 1,000 MG in NA CHLORIDE 0.9% 100 ML IV SCH (08:38)
[2024-09-14] MEDS ORDERED: METOPROLOL XL 100 MG TAB PO SCH (09:00)
[2024-09-15 08:58] LABS: Absolute Basophils 0.1 K/uL (0-0.5); Absolute Eosinophils 0.1 K/uL (0-0.5); Absolute Lymphocytes (CBC) 2.1 K/uL (0.7-4.9); Absolute Monocytes 0.8 K/uL (0.1-1.3); Absolute Neutrophil 5.9 K/uL (1.8-8.0); Basophils % 0.6 % (0-1.3); Eosinophils % 1.6 % (0-4.4); Hematocrit 31.3 % (36.0-45.0); Hemoglobin 10.4 g/dL (12.0-15.0); Lymphocytes % 23.5 % (15.3-44.8); MCH 29.6 pg (27.0-35.0); MCHC 33.1 g/dL (32.0-36.0); MCV 89.3 fL (80-100); MPV 7.6 fL (7.6-11.3); Monocytes % 9.2 % (3.3-12.3); Neutrophils % 65.1 % (41.7-73.7); Platelets 445 thou/uL (152-406); RBC Red Blood Cell Count 3.51 M/uL (3.86-4.86); Red Cell Distribution Width 13.6 % (12.1-15.2)
[2024-09-15 09:17] LABS: Anion Gap 7.6 mEq/L (5.0-15.0); Potassium 3.6 mEq/L (3.5-5.1)
[2024-09-15 09:22] LABS: ALT/SGPT 15 U/L (13-56); AST/SGOT 11 U/L (15-37); Albumin 2.4 g/dL (3.4-5.0); Albumin/Globulin Ratio 0.6 (1.1-1.8); Alkaline Phosphatase 87 U/L (45-117); Bilirubin Total 0.3 mg/dL (0.2-1.0); Globulin 4.1 g/dL (2.3-3.5); Protein, Total 6.5 g/dL (6.4-8.2)
[2024-09-15 09:28] LABS: Bilirubin Direct < 0.2 mg/dL (0-0.2); Bilirubin Indirect, Calculated 0.1 mg/dL (0.2-0.8)
[2024-09-15 12:05] VITALS: BP 122/60; TEMP 98.1
--- NOTE | 2024-09-15 12:41 | EKG ---
Test Date: 2024-09-13 Test Time: 16:12:38 Campaign Fundraiser: PILAR Vazquez MEASUREMENT RESULTS: Intervals: Rate: 121 MS: 134 QRSD: 72 QT: 310 QTc: 440 [place]: P: 56 MS: 134 QRS: -17 T: 40 INTERPRETIVE STATEMENTS: Sinus tachycardia Inferior infarct, age undetermined Abnormal ECG Compared to ECG 09/12/2024 16:45:11 Myocardial infarct finding now present Sinus rhythm no longer present Electronically Signed On 09-15-24 12:37:16 CDT by Kashmir Robison
--- NOTE | 2024-09-15 12:47 | EKG ---
Test Date: 2024-09-12 Test Time: 16:45:11 Matlab Developer: AM MEASUREMENT RESULTS: Intervals: Rate: 82 DC: 138 QRSD: 70 QT: 364 QTc: 425 Delphi: P: 57 DC: 138 QRS: -20 T: 37 INTERPRETIVE STATEMENTS: Normal sinus rhythm Normal ECG Compared to ECG 03/23/2024 10:56:25 Myocardial infarct finding no longer present Electronically Signed On 09-15-24 12:40:38 CDT by Kashmir Robison
--- NOTE | 2024-09-15 13:12 | P.DS ---
Admission Date: 09/12/24 Discharge Date: 09/15/24 Disposition: ROUTINE DISCHARGE Reason for Admission: WEAKNESS - Problems (1) General weakness Current Visit: Yes Status: Acute Brief History of Present Illness: RIMMA HAD A NECK SURGERY FOR C SPINE ABOUT TWO WEEKS AGO. AFTER SURGERY SHE CODED AND NOT ABLE TO EXPLAIN WHAT EXACTLY HAPPENED. SHE TOOK A WEEK TO RECOVER AT [facility]. SHE WAS SENT HOME. DOING GOOD FOR 3 DAYS BUT THEN GOT WEAK AGAIN. SHE HAD NO COUGH, NO FEVER, NO DYPSNEA, NO ABDOMEN PAIN. TODAY SHE IS A LOT BETTER AFTER BEING ON LEVAQUIN AND IV. SHE SAYS THAT HER PULMONARY MD ALWAYS ASKS IF SH HAD FELT WELL LUNGS SHOWED ILLITERATES. Hospital Course: Rimma is doing great now. She wanted to go home yesterday as she has apt with her surgeon. I told her that she will be right back if she went too early. Her surgeon agreed. She will now take oral augmentin and fu in office for aspirartion pneumonia. Vital Signs/Physical Exam: Temp Pulse Resp BP Pulse Ox 98.1 F 95 H 16 122/60 99 09/15/24 12:00 09/15/24 12:00 09/15/24 12:00 09/15/24 12:00 09/15/24 12:00 Laboratory Data at Discharge: WBC 9.10 thou/uL (4.3-10.9) 09/15/24 08:48 Hgb 10.4 g/dL (12.0-15.0) L 09/15/24 08:48 Hct 31.3 % (36.0-45.0) L 09/15/24 08:48 Plt Count 445 thou/uL (152-406) H 09/15/24 08:48 PT 13.3 SECONDS (10-13.0) H 09/12/24 16:30 INR 1.18 09/12/24 16:30 Sodium 135 mEq/L (136-145) L 09/15/24 08:48 Potassium 3.6 mEq/L (3.5-5.1) 09/15/24 08:48 BUN 4 mg/dL (7-18) L 09/15/24 08:48 Creatinine 0.60 mg/dL (0.55-1.02) 09/15/24 08:48 Glucose 121 mg/dL (74-106) H 09/15/24 08:48 Magnesium 2.0 mg/dL (1.6-2.4) 09/15/24 08:48 Total Bilirubin 0.3 mg/dL (0.2-1.0) 09/15/24 08:48 AST 11 U/L (15-37) L 09/15/24 08:48 ALT 15 U/L (13-56) 09/15/24 08:48 Alkaline Phosphatase 87 U/L (45-117) 09/15/24 08:48 Lipase 31 U/L (13-75) 09/13/24 05:53 Home Medications: Metoprolol Succinate [Toprol Xl] 100 mg PO DAILY 02/03/23 Biotin 10,000 mcg PO DAILY 03/23/24 Famotidine [Pepcid*] 20 mg PO BID 03/23/24 Fluticasone/Umeclidin/Vilanter [Trelegy Ellipta 100-62.5-25] 1 puff IH DAILY 03/23/24 Gabapentin [Neurontin*] 100 mg PO BID 03/23/24 Zoledronic Acid/Mannitol/Water [Reclast 5 MG/100 ML IVPB (PREMIX)*] 5 mg IV SEECOM 03/23/24 Amoxicillin/Potassium Clav [Amox Tr-K Clv 875-125 mg Tab] 1 each PO BID #14 09/15/24 New Medications: Amoxicillin/Potassium Clav [Amox Tr-K Clv 875-125 mg Tab] 1 each PO BID #14 Followup: Joe Mckeon MD [Primary Care Provider] -
--- NOTE | 2024-09-15 13:14 | P.PN ---
Subjective Date of Service: 09/14/24 Chief Complaint: tachy cardia, fatigue Subjective: Improving SHE IS LOT BETTER. NOT READY YET EVEN SHE WANTS TO. Review of Systems 10-point ROS is otherwise unremarkable General: Weakness Physical Examination - Vital Signs Temperature: 98.1 F Blood Pressure: 122/60 Pulse: 95 Respirations: 16 Pulse Ox (%): 99 - Physical Exam General: Oriented x3, Mild distress HEENT: Atraumatic, PERRLA, EOMI Neck: Supple, JVD not distended Respiratory: Crackles/rales (HUI BASAL. ) Cardiovascular: Regular rate/rhythm, Normal S1 S2 Gastrointestinal: Normal bowel sounds, No tenderness Musculoskeletal: No tenderness Integumentary: No rashes Neurological: Normal speech, Normal tone, Normal affect Lymphatics: No axilla or inguinal lymphadenopathy - Studies Medications List Reviewed: Yes Assessment And Plan - Current Problems (Diagnosis) (1) General weakness Current Visit: Yes Status: Acute Plan: NOT CLEAR REASON WITH THIS. POST OP RECOVERY. DO CT ANGIO CHEST SHE IS AT HIGH RISK OF PE. CT CHEST ABDOMEN AND PELVIS DONE BY ER BUT NOT WITH CONTRAST. 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 PROGNOSIS IS GUARDED. (2) Aspiration pneumonia Current Visit: Yes Status: Acute Plan: ON CT SCAN POSSIBLE DURING OR AFTER SURGERY. SHE HAD AND EVENT WHEN SHE PASSED OUT AT THE OTHER HOSPITAL AFTER SURGERY. SHE IS STABLE. NEEDS ONE MORE DAY OF IV MERREM.
== END 2024-09-15 13:54 | disposition home or self-care (01) | DRG 178 ==
LOC: ER 15:22 → ERHOLD 19:05 → 2ND 20:13
PROVIDERS: ADMIT Internal Medicine; ATTEND Internal Medicine
DX: J69.0 Pneumonitis due to inhalation of food and vomit (principal); E44.1 Mild protein-calorie malnutrition; K29.80 Duodenitis without bleeding; I10 Essential (primary) hypertension; J44.9 Chronic obstructive pulmonary disease, unspecified; Z68.21 Body mass index [BMI] 21.0-21.9, adult; Z11.52 Encounter for screening for COVID-19; Z79.899 Other long term (current) drug therapy; Z87.891 Personal history of nicotine dependence; Z85.118 Personal history of other malignant neoplasm of bronchus and lung
CPT/HCPCS: 36415; 70450; 71045; 71250; 71275; 72125; 74176; 80048; 80076; 81001; 83605; 83690; 83735; 83880; 84484; 85025; 85610; 87040; 87428; 93005; 97116; 97161; 97530; 99285; J0696; J2185; J2470; J3411; J7030; J7799; Q9967